=== PATIENT | female | born 1965 | race Caucasian/White ===

== ENCOUNTER 2019-12-10 10:49 | Inpatient (IN) | payer BC, OTHER ==
[~2019-12-10] VITALS: Ht 170.2 cm; Wt 72.0 kg
[2019-12-10] MEDS ORDERED: AZITHROMYCIN 500MG/ 250ML 250 ML IV ONE (11:15)
[2019-12-10] MEDS ORDERED: SODIUM CHLORIDE 0.9% 1,000 ML IV ONE (11:15)
[2019-12-10] MEDS ORDERED: ASCORBIC ACID 500 MG TAB PO ONE (11:15)
[2019-12-10] MEDS ORDERED: ZINC SULFATE 220mg CAP or TAB PO ONE (11:15)
[2019-12-10] MEDS ORDERED: SODIUM CHLORIDE 0.9% 500 ML IV ONE (11:15)
[2019-12-10] MEDS ORDERED: DexAMETHasone SOD PHOS 4 MG/1ML SDV INJ IV ONE (11:15)
[2019-12-10 11:33] LABS: Basophils # (auto) 0 10 ^3/uL (0-0.2); Basophils % (auto) 0.6 % (0.0-2.0); Eosinophils # (auto) 0 10 ^3/uL (0-0.8); Eosinophils % (auto) 0.2 % (0.0-7.0); Hematocrit 42.2 % (36.0-46.0); Hemoglobin 14.4 g/dL (12.2-16.2); Lymphocytes % (auto) 26.4 % (10.0-50.0); Mean Corpuscular Hemoglobin 29.5 pg (28.0-32.0); Mean Corpuscular Hgb Conc. 34.2 g/dL (32.0-36.0); Mean Corpuscular Volume 86.2 fL (80.0-100.0); Monocytes # (auto) 0.2 10 ^3/uL (0-1.3); Monocytes % (auto) 4.2 % (0.0-12.0); Neutrophils # (auto) 2.5 10 ^3/uL (1.6-8.6); Neutrophils % (auto) 68.6 % (37.0-80.0); Nucleated Red Blood Cells % 0.3 %; Platelet Count (auto) 153 10^3/uL (140-450); Red Cell Distribution Width 13.1 % (11.8-14.3); White Blood Cell 3.6 10^3/uL (4.4-10.8)
[2019-12-10 12:15] LABS: Calcium 8.5 mg/dL (8.5-10.1); Potassium 3.2 mmol/L (3.5-5.1)
[2019-12-10 12:21] LABS: Albumin 3.3 g/dL (3.4-5.0); BUN/Creatinine Ratio 22.1; Bilirubin, Total 0.8 mg/dL (0.2-1.0)
[2019-12-10] MEDS ORDERED: POTASSIUM EFFERVESENT TAB 25 MEQ PO ONE (13:15)
[2019-12-10] MEDS ORDERED: cefTRIAXone 1GM/50ML D5W 50 ML IV ONE (13:15)
[2019-12-10] MEDS ORDERED: SODIUM CHLORIDE 0.9% 1,000 ML IV SCH (14:59)
[2019-12-10] MEDS ORDERED: ACETAMINOPHEN 500 MG TAB PO PRN (15:00)
[2019-12-10] MEDS ORDERED: LORazepam 0.5 MG TAB PO PRN (15:00)
[2019-12-10] MEDS ORDERED: HYDROcodone-ACET 5/325MG TAB PO PRN (15:00)
[2019-12-10] MEDS ORDERED: NITROGLYCERIN 0.4 MG SL TAB SL PRN (15:00)
[2019-12-10] MEDS ORDERED: MORPHINE SULF INJ 2 MG/ML SYRINGE 1ML IV PRN ×2 (15:00)
[2019-12-10] MEDS ORDERED: DOCUSATE SOD 100 MG CAP PO PRN (15:00)
[2019-12-10] MEDS ORDERED: ALUM & MAG HYDROX-SIMETH LIQ(MAALOX) 30 ML PO PRN (15:00)
[2019-12-10] MEDS ORDERED: DexAMETHasone 4 MG TAB PO ONE (15:15)
[2019-12-10] MEDS ORDERED: FUROSEMIDE 20 MG/2 ML VIAL IV ONE (15:15)
[2019-12-10] MEDS ORDERED: POTASSIUM CHL 20 Meq TABLET PO ONE (15:30)
[2019-12-10 15:41] LABS: Cholesterol 137 mg/dL (< 200); HDL Cholesterol 38 mg/dL (40-59); LDL Cholesterol 89 mg/dL (< 100); Triglycerides 109 mg/dL (< 150)
[2019-12-10 15:45] LABS: CRP High Sensitivity 7.11 mg/dL (< 0.3)
[2019-12-10] MEDS: ONDANSETRON HCL 4 MG/2 ML VIAL IV PRN ×2 (16:47→23:16)
[2019-12-10] MEDS: FUROSEMIDE 20 MG/2 ML VIAL IV SCH (18:00)
[2019-12-10 18:15] VITALS: BP 128/78
[2019-12-10 19:25] LABS: Urine Bacteria NONE SEEN /hpf (None Seen); Urine Blood Negative /uL (Negative); Urine Specific Gravity 1.005 (1.001-1.035); Urine WBC 1 /hpf (0 - 5)
[2019-12-10 19:37] LABS: Amphetamine Screen, Urine NEGATIVE (NEGATIVE); Barbiturate Scree,Urine NEGATIVE (NEGATIVE); Benzodiazephine Screen, Urine NEGATIVE (NEGATIVE); Cannabinoid Screen, Urine NEGATIVE (NEGATIVE); Cocaine Screen, Urine NEGATIVE (NEGATIVE); Opiate Scree,Urine NEGATIVE (NEGATIVE); Phencyclidine Screen, Urine NEGATIVE (NEGATIVE)
[2019-12-10 19:42] LABS: Alcohol, Urine < 3.0 mg/dL (0-10)
[2019-12-10 20:00] VITALS: BP 122/74
[2019-12-10 21:13] VITALS: BP 128/78
[2019-12-10 22:00] VITALS: BP 122/74
[2019-12-10] MEDS ORDERED: DOXYCYCLINE 100MG/250ML 250 ML IV SCH (22:00)
[2019-12-10] MEDS: DexAMETHasone 4 MG TAB PO SCH (22:02)
[2019-12-10] MEDS: DOXYCYCLINE 100 MG TAB/CAP PO SCH (22:03)
[2019-12-10] MEDS: ALBUTEROL SULF HFA 90MCG INH 200DOSE IN SCH (23:00)
[2019-12-11] VITALS (7 sets, daily range): BP systolic 110–161; BP diastolic 74–85
[2019-12-11 06:07] LABS: Basophils # (auto) 0 10 ^3/uL (0-0.2); Basophils % (auto) 0.1 % (0.0-2.0); Eosinophils # (auto) 0 10 ^3/uL (0-0.8); Hematocrit 39.7 % (36.0-46.0); Hemoglobin 13.6 g/dL (12.2-16.2); Lymphocytes # (auto) 0.4 10 ^3/uL (0.4-5.4); Lymphocytes % (auto) 11.6 % (10.0-50.0); Mean Corpuscular Hemoglobin 29.4 pg (28.0-32.0); Mean Corpuscular Hgb Conc. 34.3 g/dL (32.0-36.0); Mean Corpuscular Volume 85.8 fL (80.0-100.0); Monocytes # (auto) 0.1 10 ^3/uL (0-1.3); Monocytes % (auto) 2.9 % (0.0-12.0); Neutrophils # (auto) 2.6 10 ^3/uL (1.6-8.6); Neutrophils % (auto) 85.4 % (37.0-80.0); Nucleated Red Blood Cells % 0.1 %; Platelet Count (auto) 165 10^3/uL (140-450); Red Blood Cells 4.62 10^6/uL (4.0-5.20); Red Cell Distribution Width 13.5 % (11.8-14.3); White Blood Cell 3.1 10^3/uL (4.4-10.8)
[2019-12-11] MEDS: FUROSEMIDE 20 MG/2 ML VIAL IV SCH ×2 (06:24→17:31)
[2019-12-11 06:33] LABS: Albumin 2.9 g/dL (3.4-5.0); Anion Gap 6 (5-15); Blood Urea Nitrogen 16 mg/dL (7-18); Calcium 8.1 mg/dL (8.5-10.1); Carbon Dioxide 24 mmol/L (21-32); Chloride 109 mmol/L (98-107); Glucose 119 mg/dL (74-106); Magnesium 2.2 mg/dL (1.6-2.6); Potassium 3.6 mmol/L (3.5-5.1); Sodium 139 mmol/L (136-145)
[2019-12-11 06:42] LABS: Alanine Aminotransferase 18 U/L (13-56); Alkaline Phosphatase 49 U/L (45-117); Aspartate Aminotransferase 18 U/L (15-37); BUN/Creatinine Ratio 30.8; Bilirubin, Total 0.5 mg/dL (0.2-1.0); Creatine Kinase IFCC 67 U/L (26-192); GFR African American 159 mL/min; GFR Non-African American 132 mL/min; Lactate Dehydrogenase 389 U/L (84-246); Phosphorus 2.9 mg/dL (2.5-4.90); Total Protein 6.6 g/dL (6.4-8.2); Uric Acid 5.9 mg/dL (2.6-6.0)
[2019-12-11] MEDS: ALBUTEROL SULF HFA 90MCG INH 200DOSE IN SCH ×4 (06:50→22:30)
[2019-12-11] MEDS: ZINC SULFATE 220mg CAP or TAB PO SCH ×2 (10:00→10:31)
[2019-12-11] MEDS: POTASSIUM CHL 20 Meq TABLET PO SCH (10:32)
[2019-12-11] MEDS: CHOLECALCIFEROL (VITD3) 1,000IU=25mCg TAB PO SCH (10:32)
[2019-12-11] MEDS: DexAMETHasone 4 MG TAB PO SCH ×2 (10:32→22:36)
[2019-12-11] MEDS: ENOXAPARIN SOD 40 MG/0.4 ML SYRINGE SC SCH (10:32)
[2019-12-11] MEDS: DOXYCYCLINE 100 MG TAB/CAP PO SCH ×2 (10:32→22:36)
[2019-12-11] MEDS: ASCORBIC ACID 1,000 MG TAB PO SCH (10:32)
[2019-12-11 12:22] LABS: INR 1.11 (0.9-1.15); Partial Thromboplastin Time 29.9 sec (23.64-32.05)
[2019-12-12 05:11] VITALS: BP 125/76
[2019-12-12] MEDS: ALBUTEROL SULF HFA 90MCG INH 200DOSE IN SCH ×4 (06:00→14:03)
[2019-12-12] MEDS: FUROSEMIDE 20 MG/2 ML VIAL IV SCH (06:09)
[2019-12-12 09:04] VITALS: BP 113/74
[2019-12-12] MEDS: ZINC SULFATE 220mg CAP or TAB PO SCH (10:00)
[2019-12-12] MEDS: DexAMETHasone 4 MG TAB PO SCH (10:04)
[2019-12-12] MEDS: ENOXAPARIN SOD 40 MG/0.4 ML SYRINGE SC SCH (10:05)
[2019-12-12] MEDS: ASCORBIC ACID 1,000 MG TAB PO SCH (10:05)
[2019-12-12] MEDS: CHOLECALCIFEROL (VITD3) 1,000IU=25mCg TAB PO SCH (10:05)
[2019-12-12] MEDS: POTASSIUM CHL 20 Meq TABLET PO SCH (10:05)
[2019-12-12] MEDS: DOXYCYCLINE 100 MG TAB/CAP PO SCH (10:05)
[2019-12-12 16:27] VITALS: BP 131/82
== END 2019-12-12 17:19 | disposition home or self-care (01) | DRG 177 ==
LOC: ER 10:49 → TELE 10:50 → TELE-E-ADS 16:48
PROVIDERS: ADMIT Hospitalist; ATTEND Internal Medicine
DX: U07.1 COVID-19 (principal); J12.89 Other viral pneumonia; J96.00 Acute respiratory failure, unspecified whether with hypoxia or hypercapnia; E87.1 Hypo-osmolality and hyponatremia; E44.1 Mild protein-calorie malnutrition; E87.6 Hypokalemia; D72.819 Decreased white blood cell count, unspecified; Z68.24 Body mass index [BMI] 24.0-24.9, adult
CPT/HCPCS: 36415; 71045; 80053; 80061; 80307; 81001; 82550; 82728; 83036; 83605; 83615; 83735; 83880; 84100; 84443; 84484; 84550; 85025; 85379; 85610; 85652; 85730; 86141; 87040; 87070; 87086; 87804; 87880; 93005; 94640; 96365; 96367; 96375; G0378; J0696; J1100; J2405